=== PATIENT | male | born 1965 | race Caucasian/White ===

== ENCOUNTER 2017-05-20 17:18 | Observation (INO) ==
[2017-05-20] MEDS ORDERED: MetroNIDAZOLE 500 MG/100 ML 500 MG/100 ML BAG IVPB ONE (17:40)
--- NOTE | 2017-05-20 17:45 | Emergency Department Note ---
Disposition Clinical Impression: Diverticulitis Disposition: Admitted As Inpatient Condition: Fair Time of Disposition: 20:14 General Adult HPI - General Chief complaint: ED Abdominal Pain Stated complaint: abd pain Time Seen by Provider: 05/20/17 17:26 Source: patient Limitations: no limitations Nursing Notes Reviewed: Yes Vital Signs Reviewed: Yes - History of Present Illness Pain Scale: 4 - Related Data Home Medications Medication Instructions Recorded Confirmed Ciprofloxacin HCl [Cipro] 500 mg PO BID 05/20/17 05/20/17 Losartan Potassium [Cozaar] 50 mg PO DAILY 05/20/17 05/20/17 Metoclopramide [Reglan] 10 mg PO TID 05/20/17 05/20/17 Metoprolol Tartrate [Metoprolol 50 mg PO BID 05/20/17 05/20/17 Tartrate] Testosterone Cypionate [Testone 200 mg IM QMONTH 05/20/17 05/20/17 Cik] metroNIDAZOLE [Flagyl] 500 mg PO BID 05/20/17 05/20/17 traZODone [TraZODone] 50 mg PO HS 05/20/17 05/20/17 Allergies Allergy/AdvReac Type Severity Reaction Status Date / Time lisinopril AdvReac Cough Verified 05/20/17 17:49 Past Medical History - Past Medical History Medical history: Reports: GERD, hypertension Psychiatric history: Reports: no psych history - Social History Smoking Status: Never smoker Smokeless Tobacco Status: No Alcohol use: Reports: occasionally Drug use: Reports: none Physical Exam - General Limitations: no limitations General appearance: alert Course Vital Signs Temperature 97.9 F 05/20/17 17:20 Pulse Rate 74 05/20/17 17:20 Respiratory Rate 20 05/20/17 17:20 Blood Pressure 155/90 05/20/17 17:20 O2 Sat by Pulse Oximetry 95 05/20/17 17:20 Temperature 97.9 F 05/20/17 17:20 Pulse Rate 71 05/20/17 18:56 Respiratory Rate 15 05/20/17 18:56 Blood Pressure 142/88 05/20/17 18:56 O2 Sat by Pulse Oximetry 95 05/20/17 18:56 Oxygen Delivery Oxygen Delivery Room Air Medical Decision Making - Lab Data Result diagrams: 05/20/17 19:06 05/20/17 17:47 Lab Results 05/20/17 05/20/17 Range/Units 17:47 19:06 WBC 8.5 (4.3-11.1) K/mcL RBC 5.07 (4.19-5.50) M/mcL Hgb 15.4 (12.9-16.9) g/dL Hct 45.8 (37.5-50.1) % MCV 90.3 (83.0-100.0) fL MCH 30.4 (28.0-33.3) pg MCHC 33.6 (31.6-35.5) g/dL RDW 14.1 (11.5-14.5) % Plt Count 298 (140-400) K/mcL MPV 9.1 L (9.4-12.4) fL Sodium 135 L (136-145) mEq/L Potassium 3.7 (3.5-5.1) mEq/L Chloride 102 (98-107) mEq/L Carbon Dioxide 25 (23-29) mEq/L BUN 14 (6-20) mg/dL Creatinine 1.12 (0.70-1.30) mg/dL Est GFR ( Amer) > 60 (> 60) Est GFR (Non-Af Amer) > 60 (> 60) BUN/Creatinine Ratio 13 (6-26) Glucose 115 H (70-105) mg/dL Calculated Osmolality 281 (280-300) Calcium 9.1 (8.6-10.3) mg/dL
--- NOTE | 2017-05-20 17:45 | Emergency Department Note ---
Disposition Clinical Impression: Diverticulitis Disposition: Admitted As Inpatient Condition: Fair Time of Disposition: 20:00 General Adult HPI - General Chief complaint: ED Abdominal Pain Stated complaint: abd pain Time Seen by Provider: 05/20/17 17:26 Source: patient Mode of arrival: ambulatory Limitations: no limitations Nursing Notes Reviewed: Yes Vital Signs Reviewed: Yes - History of Present Illness HPI Narrative: Patient is a 51-year-old male with a past medical history of diverticulitis and bowel obstruction presenting to the ED per request of his family care physician for diverticulitis. The patient states that over the past 5 days he has been having left lower quadrant pain described as a sharp stabbing pain that is intermittent associated with nonbloody diarrhea. He states that he was seen by his primary care physician 3 days ago and started on ciprofloxacin and Flagyl by mouth he states that his symptoms have not been improving since then. The patient had labs and a CT scan done today at [facility] and due to the CT findings the family physician requested that the patient come to the hospital to be admitted to our services for IV antibiotics. Pain Scale: 4 - Related Data Home Medications Medication Instructions Recorded Confirmed Ciprofloxacin HCl [Cipro] 500 mg PO BID 05/20/17 05/20/17 Losartan Potassium [Cozaar] 50 mg PO DAILY 05/20/17 05/20/17 Metoclopramide [Reglan] 10 mg PO TID 05/20/17 05/20/17 Metoprolol Tartrate [Metoprolol 50 mg PO BID 05/20/17 05/20/17 Tartrate] Testosterone Cypionate [Testone 200 mg IM QMONTH 05/20/17 05/20/17 Cik] metroNIDAZOLE [Flagyl] 500 mg PO BID 05/20/17 05/20/17 traZODone [TraZODone] 50 mg PO HS 05/20/17 05/20/17 Allergies Allergy/AdvReac Type Severity Reaction Status Date / Time lisinopril AdvReac Cough Verified 05/20/17 17:49 All systems ED: reviewed and negative except as stated. Review of Systems: As Per HPI Constitutional: Denies: fever, chills Cardiovascular: Denies: chest pain, palpitations, dyspnea on exertion Respiratory: Denies: cough, dyspnea Gastrointestinal: Reports: abdominal pain, diarrhea. Denies: nausea, vomiting, hematemesis, melena, hematochezia Musculoskeletal: Denies: back pain, neck pain Past Medical History - Past Medical History Attestation: Yes The following information was validated with the patient. Medical history: Reports: GERD, hypertension Psychiatric history: Reports: no psych history - Social History Smoking Status: Never smoker Smokeless Tobacco Status: No Alcohol use: Reports: occasionally Drug use: Reports: none Physical Exam CONSTITUTIONAL: Alert and oriented X3, well-nourished, well appearing, in no apparent distress HEAD: Normocephalic; atraumatic. EYES: PERRL, no scleral icterus. NOSE: The nose is normal in appearance without rhinorrhea RESP: Normal chest excursion with respiration; breath sounds clear and equal bilaterally; no wheezes, rhonchi, or rales CARD: Regular rhythm, without murmurs, rub or gallop ABD: Non-distended; moderate tenderness in the LLQ. No rebound or rigidity. Voluntary guarding. SKIN: Normal for age and race; warm and dry; no apparent lesions NEURO: GCS of 15. A of 4. No focal neurological deficit. - General Limitations: no limitations General appearance: alert Course Course Narrative: Patient had a CT of the abdomen and pelvis done outpatient which did show diverticulitis of the left lower quadrant with no abscess or obstruction present. Basic labs were ordered which were unremarkable. The patient was given a dose of IV antibiotics and admitted to the hospitalist for further management. Vital Signs Temperature 97.9 F 05/20/17 17:20 Pulse Rate 74 05/20/17 17:20 Respiratory Rate 20 05/20/17 17:20 Blood Pressure 155/90 05/20/17 17:20 O2 Sat by Pulse Oximetry 95 05/20/17 17:20 Temperature 97.9 F 05/20/17 17:20 Pulse Rate 71 05/20/17 18:56 Respiratory Rate 15 05/20/17 18:56 Blood Pressure 142/88 05/20/17 18:56 O2 Sat by Pulse Oximetry 95 05/20/17 18:56 Oxygen Delivery Oxygen Delivery Room Air Medical Decision Making - Medical Records Medical records reviewed: Yes I reviewed the patient's medical records. - Lab Data Lab results reviewed: Yes I reviewed the patient's lab results. Result diagrams: 05/20/17 19:06 05/20/17 17:47 Lab Results 05/20/17 05/20/17 Range/Units 17:47 19:06 WBC 8.5 (4.3-11.1) K/mcL RBC 5.07 (4.19-5.50) M/mcL Hgb 15.4 (12.9-16.9) g/dL Hct 45.8 (37.5-50.1) % MCV 90.3 (83.0-100.0) fL MCH 30.4 (28.0-33.3) pg MCHC 33.6 (31.6-35.5) g/dL RDW 14.1 (11.5-14.5) % Plt Count 298 (140-400) K/mcL MPV 9.1 L (9.4-12.4) fL Sodium 135 L (136-145) mEq/L Potassium 3.7 (3.5-5.1) mEq/L Chloride 102 (98-107) mEq/L Carbon Dioxide 25 (23-29) mEq/L BUN 14 (6-20) mg/dL Creatinine 1.12 (0.70-1.30) mg/dL Est GFR ( Amer) > 60 (> 60) Est GFR (Non-Af Amer) > 60 (> 60) BUN/Creatinine Ratio 13 (6-26) Glucose 115 H (70-105) mg/dL Calculated Osmolality 281 (280-300) Calcium 9.1 (8.6-10.3) mg/dL
[2017-05-20 18:36] LABS: BUN/Creatinine Ratio 13 (6-26); Blood Urea Nitrogen 14 mg/dL (6-20); Calcium 9.1 mg/dL (8.6-10.3); Carbon Dioxide 25 mEq/L (23-29); Chloride 102 mEq/L (98-107); Glucose 115 mg/dL (70-105); Osmolality,Calculated 281 (280-300); Potassium 3.7 mEq/L (3.5-5.1); Sodium 135 mEq/L (136-145); eGFR For African Americans > 60 (> 60); eGFR For Non-African Americans > 60 (> 60)
[2017-05-20 19:11] LABS: Hematocrit 45.8 % (37.5-50.1); Hemoglobin 15.4 g/dL (12.9-16.9); Mean Corpuscular HGB Conc 33.6 g/dL (31.6-35.5); Mean Corpuscular Hemoglobin 30.4 pg (28.0-33.3); Mean Corpuscular Volume 90.3 fL (83.0-100.0); Mean Platelet Volume 9.1 fL (9.4-12.4); Platelet Count 298 K/mcL (140-400); Red Blood Count 5.07 M/mcL (4.19-5.50); Red Cell Distribution Width 14.1 % (11.5-14.5)
[2017-05-20] MEDS ORDERED: *HR* Promethazine 25 MG/ML VIAL IVP PRN (20:43)
[2017-05-20] MEDS ORDERED: Ondansetron 4 MG/2 ML VIAL IVP PRN (20:43)
[2017-05-20] MEDS ORDERED: Naloxone 0.4 MG/ML INJ IVP PRN (20:43)
[2017-05-20] MEDS ORDERED: Acetaminophen 325 MG TABLET PO PRN (20:43)
[2017-05-20] MEDS ORDERED: *HR* FentaNYL (PF) 100 MCG/2 ML VIAL IVP PRN (20:45)
--- NOTE | 2017-05-20 21:14 | Internal Med History&Physical ---
Date of Encounter: 05/20/17 Time of Encounter: 19:45 Assessment and Plan (1) Diverticulitis Current visit: Yes Status: Acute Place the pt into Med Surg for observation Reviewed CT of abd showed Left sigmoid diverticulitis, no abscess noticed NPO for now Switch to IV Abx Cipro and Flagyl Normal WBC, pt does not look toxic Since he does have recurrent episode and never followed with surgeon before, so consulted Dr. Blue for further care IV hydration IV analgesics on PPI (2) HTN (hypertension) Current visit: Yes Status: Acute resumed home PO meds Qualifiers: Qualified Code(s): I10 - Essential (primary) hypertension Internal Medicine - H&P: HPI Chief complaint: Abdominal pain Admitted From: Emergency Dept Plans for Post Hospital Care: Home History of present illness: Mr. Barros is a 51 year old male with a known past medical history of hypertension, GERD, diverticulitis with a small bowel obstruction 2 years ago who never had a colonoscopy has been having left lower quadrant abdominal pain from last 5 days. He went to PCP on Saturday who started him on PO Flagyl and Cipro suspecting as diverticulitis. However his abdominal pain have not improved and also started having diarrhea with no blood since Saturday. He went back to PCP today who did CT of abd which confirmed Acute complicated diverticulitis disytall left and sigmoid colon with no abscess. Pt denied any N / V. Past Med Surg Social Fam HX - Past Medical History Medical history: GERD, hypertension Psychiatric history: no psych history - Past Surgical History Surgical History: no surgical history - Social History Smoking Status: Never smoker Smokeless Tobacco Status: No Alcohol use: occasionally Drug use: none - Additional Family History Additional family history: Family hsitory reviewed and non contribuitory to current problem. Denied any inflammatory bowel disease in the family Internal Medicine - H&P: Meds Ciprofloxacin HCl [Cipro] 500 mg PO BID 05/20/17 [History] Losartan Potassium [Cozaar] 50 mg PO DAILY 05/20/17 [History] Metoclopramide [Reglan] 10 mg PO TID 05/20/17 [History] Metoprolol Tartrate [Metoprolol Tartrate] 50 mg PO BID 05/20/17 [History] Testosterone Cypionate [Testone Cik] 200 mg IM QMONTH 05/20/17 [History] metroNIDAZOLE [Flagyl] 500 mg PO BID 05/20/17 [History] traZODone [TraZODone] 50 mg PO HS 05/20/17 [History] 3 Allergy/AdvReac Type Severity Reaction Status Date / Time lisinopril AdvReac Cough Verified 05/20/17 17:49 All Systems PM: A 10-system review of systems was performed and is negative for pertinent findings except as documented above in the HPI. Review of systems: All the systems are reviewed everything is benign except the systems and symptoms I mentioned in the history of present illness - Constitutional Vitals: Temp Pulse Resp BP Pulse Ox 98.5 F 78 16 154/77 95 05/20/17 20:34 05/20/17 20:34 05/20/17 20:34 05/20/17 20:34 05/20/17 20:34 General appearance: Present: A&O X 3, no acute distress, answers questions appropriately - Head Head exam: Present: atraumatic, normal inspection - Neck Neck exam general surgery: Present: supple - Respiratory Respiratory exam: Present: decreased breath sounds. Absent: rales, respiratory distress, rhonchi, wheezes - Cardiovascular Cardiovascular exam: Present: RRR, +S1, +S2. Absent: tachycardia - GI/Abdominal GI/Abdominal exam: Present: normal bowel sounds, soft, tenderness (mild to moderate tenderness in LLQ). Absent: rebound, rigid - Extremities Exam Extremities exam: Absent: calf tenderness, pedal edema, tenderness - Back Exam Back exam: Absent: CVA tenderness (L), CVA tenderness (R) - Neurological Exam Neurological exam: Present: alert, oriented X3 - Psychiatric Psychiatric exam: Present: normal affect, normal mood - Skin Skin exam: Absent: rash Internal Med - H&P Results - Labs CBC & Chem 7: 05/20/17 19:06 05/20/17 17:47
[2017-05-20] MEDS: 0.9 % Sodium Chloride 1,000 ML IVC SCH (21:57)
[2017-05-20] MEDS: *HR* HYDROcodone/Acet 5/325 mg TABLET PO PRN (21:57)
[2017-05-20] MEDS: traZODone 50 MG TABLET PO SCH (21:57)
[2017-05-20] MEDS: Pantoprazole 40 MG VIAL IVP SCH (22:00)
[2017-05-21] MEDS: MetroNIDAZOLE 500 MG/100 ML 500 MG/100 ML BAG IVPB SCH ×4 (00:18→23:26)
[2017-05-21] MEDS: *HR* HYDROcodone/Acet 5/325 mg TABLET PO PRN (04:32)
--- NOTE | 2017-05-21 09:17 | Internal Med Progress Note ---
Date of Encounter: 05/21/17 Time of Encounter: 09:00 - Assessment and plan (1) Diverticulitis Current Visit: Yes Status: Acute Assessment and plan: With possible microperforation. Symptoms improving. COntinue current management. Follow surgery recommendations. Continue antibiotics. (2) HTN (hypertension) Current Visit: Yes Status: Chronic Assessment and plan: Well-controlled. Continue metoprolol and losartan Qualifiers: Hypertension type: essential hypertension Qualified Code(s): I10 - Essential (primary) hypertension - Time Spent With Patient Total time spent is greater than 50% in coordination of care (as documented) at patient's floor/unit and/or counseling patient: - Subjective Interval history: Pain resolved. No fever or chills. No nausea/ vomiting. Feeling better overall. - Constitutional Vitals: Temp Pulse Resp BP Pulse Ox 98.1 F 76 16 118/68 95 05/21/17 07:04 05/21/17 07:04 05/21/17 07:04 05/21/17 07:04 05/21/17 07:04 General appearance: Present: A&O X 3, no acute distress, answers questions appropriately Internal Medicine: Result - Labs CBC & Chem 7: 05/20/17 19:06 05/20/17 17:47 Consult Discharge Plan - Plan Referrals: Sami Mar DO [Primary Care Provider] -
[2017-05-21] MEDS: Pantoprazole 40 MG VIAL IVP SCH (09:28)
[2017-05-21] MEDS: 0.9 % Sodium Chloride 1,000 ML IVC SCH (09:29)
--- NOTE | 2017-05-21 15:13 | General Surgery Consult Note ---
Date of Encounter: 05/21/17 Time of Encounter: 14:20 History of Present Illness Reason for consult: abdominal pain (acute diverticulitis with perforation) Requesting physician: Dev Ko History of present illness: 51-year-old, patient of Sami Mar CNP, admitted to [facility] after presenting to the ED with progressive left lower quadrant abdominal pain, nausea and vomiting. CT of abdomen/pelvis obtained at [facility], 05/20/17 , showed diverticular disease involving the colon. Mesenteric stranding is seen at the junction of the distal left colon and sigmoid colon. There is accompanying bowel wall thickening as well as extraluminal gas in the left lower quadrant extending into the left inguinal canal. The patient indicated abdominal pain started 05/17/17, for which ciprofloxacin and metronidazole were promptly initiated. The patient describes feelng no better, 05/20/2017, and was referred to the ED for further evaluation and treatment. The patient describes a similar episode approx 2 years with an accompanying bowel obstruction that ultimately resolved with medical management. Past medical history: Hypertension; GERD Surgical History: ORIF left ankle Allergies: Lisinopril with exposure causing cough Medications: Ciprofloxacin 500 mg by mouth twice a day Metronidazole 500 mg by mouth twice a day Losartan 50 mg by mouth daily Metoclopramide 10 mg by mouth 3 times a day Metoprolol 50 mg by mouth twice a day Testosterone cypionate 200 mg IM monthly Trazodone 50 mg by mouth daily at bedtime Social history: Patient does not smoke; admits to alcoholic intake approximately 2 times monthly; he denies any illicit drug use Physical examination: Age-appropriate male resting comfortably in his hospital bed. He indicates that he is feeling better than on presentation. The patient is 1.7 cm tall, 98.07 kg; BMI 33.9. The patient has been afebrile, currently 98.0; pulse 60, respirations 16, blood pressure 126/76. Skin: Warm, no obvious jaundice Lungs: Clear, no obvious abdominal pain with deep inspiration Cardiac: Regular rate, no appreciable murmurs Abdomen: Soft slightly obese; tender in the left lower quadrant without discernible intra-abdominal masses. Minimal pain referred from the right lower quadrant to the left lower quadrant when the abdominal wall is compressed and then released. Bowel sounds were active. The patient is passing flatus and diarrhea Extremities: No obvious clubbing, cyanosis, edema. CT abdomen/pelvis- reviewed with [facility]: White count 8.5, hemoglobin 15.4, hematocrit 45.8. Sodium 135, potassium 3.7, BUN 14, creatinine 1.12 Impression: Recurrent acute diverticulitis with ideologic evidence of extraluminal gas in the left lower quadrant consistent with acute perforation. The area was quite small-appearing in volume; consistent with a "microperforation". There are no accompanying peritoneal signs, with clinical Improvement described by the patient. Recommendations: Continue IV Cipro and metronidazole as prescribed on admission Maintain nothing by mouth except medications with sips of water until abd pain resolved If symptoms worsen or patient fails to respond to medical management, surgical intervention will be recommended Consider interval sigmoid colectomy once acute inflammatory changes have responded to medical management. This has been discussed with the patient in detail. Imminent surgical intervention not indicated at this time. I will follow along with you and make further recommendations based on the patient's response to intervention Past Med Surg Social Fam HX - Past Medical History Medical history: GERD, hypertension Psychiatric history: no psych history - Past Surgical History Surgical History: no surgical history - Social History Smoking Status: Never smoker Smokeless Tobacco Status: No Alcohol use: occasionally Drug use: none Medications and Allergies Ciprofloxacin HCl [Cipro] 500 mg PO BID 05/20/17 [History] Losartan Potassium [Cozaar] 50 mg PO DAILY 05/20/17 [History] Metoclopramide [Reglan] 10 mg PO TID 05/20/17 [History] Metoprolol Tartrate [Metoprolol Tartrate] 50 mg PO BID 05/20/17 [History] Testosterone Cypionate [Testone Cik] 200 mg IM QMONTH 05/20/17 [History] metroNIDAZOLE [Flagyl] 500 mg PO BID 05/20/17 [History] traZODone [TraZODone] 50 mg PO HS 05/20/17 [History] 3 Allergy/AdvReac Type Severity Reaction Status Date / Time lisinopril AdvReac Cough Verified 05/20/17 17:49 Review of Systems All systems PM: The remainder of the systems were reviewed and are negative General Surgery Exam Initial Vital Signs Temp Pulse Resp BP Pulse Ox 97.9 F 74 20 155/90 95 05/20/17 17:20 05/20/17 17:20 05/20/17 17:20 05/20/17 17:20 05/20/17 17:20 Exam Initial Vital Signs Temp Pulse Resp BP Pulse Ox 97.9 F 74 20 155/90 95 05/20/17 17:20 05/20/17 17:20 05/20/17 17:20 05/20/17 17:20 05/20/17 17:20 Results - Labs 05/20/17 19:06 05/20/17 17:47 Abnormal lab results MPV 9.1 fL (9.4-12.4) L 05/20/17 19:06 Sodium 135 mEq/L (136-145) L 05/20/17 17:47 Glucose 115 mg/dL (70-105) H 05/20/17 17:47 POC Glucose 99 mg/dL (68-89) H 05/21/17 05:31 All other labs normal. Consult Discharge Plan - Plan Referrals: Sami Mar DO [Primary Care Provider] -
[2017-05-21] MEDS: Ringers Solution, Lactated 1,000 ML IVC SCH (18:26)
[2017-05-21] MEDS: traZODone 50 MG TABLET PO SCH (21:41)
[2017-05-22] MEDS ORDERED: Famotidine 20 MG/2 ML VIAL IVP ONE (02:04)
[2017-05-22] MEDS ORDERED: *HR* Dextrose 50 % in Water (Syg) 50 ML SYRINGE IVP PRN (08:24)
[2017-05-22] MEDS ORDERED: Dextrose Gel 15 GM/37.5 ML TUBE PO PRN ×2 (08:24)
[2017-05-22] MEDS ORDERED: D5% in Water 1,000 ML IVC PRN (08:24)
[2017-05-22] MEDS: Pantoprazole 40 MG VIAL IVP SCH (09:44)
[2017-05-22] MEDS: MetroNIDAZOLE 500 MG/100 ML 500 MG/100 ML BAG IVPB SCH ×3 (09:44→23:56)
[2017-05-22] MEDS: Ringers Solution, Lactated 1,000 ML IVC SCH (09:45)
--- NOTE | 2017-05-22 14:14 | General Surgery Progress Note ---
Date of Encounter: 05/22/17 Time of Encounter: 13:50 Subjective Patient reports: no new complaints, feels better Narrative: General Surgery - patient feeling better; pain has almost completely resolved. Afebrile, most recently 98.0; pulse 61, respirations 15, blood pressure 127/ 78. Lungs: Clear; no abdominal pain with deep inspiration or cough Abdomen: Soft, left lower quadrant tenderness elicited to deep palpation. No rebound. Active bowel sounds. Patient complaining of diarrhea but I explained to him that this is due to the acute inflammation of the sigmoid colon. Impression: Acute sigmoid diverticulitis with evidence of perforation - "a microperforation" Patient feeling much improved with abdominal pain resolving nicely. Plan: Allow clear liquids; if no increase in abdominal pain, full liquids in a.m. Recommendations: If tolerating diet with no increase in abdominal pain, it would be reasonable to convert to oral medications including antibiotics Objective Vital Signs - Last 8 Hours Temp Pulse Resp BP Pulse Ox 05/22/17 10:25 98.0 F 61 15 127/78 95 05/22/17 07:18 98.2 F 69 15 107/68 97 Intake and Output 05/21/17 05/22/17 05/22/17 23:59 07:59 15:59 Intake Total 300 / 300 1300 / 1300 120 / 120 Output Total 275 / 275 300 / 300 350 / 350 Balance 25 / 25 1000 / 1000 -230 / -230 Intake: IV Fluids 300 / 300 1300 / 1300 100 / 100 Lactated Ringers 1,000 ML @ 75 1000 / 1000 mls/hr IVC .[id number] [facility] Rx#: [id number] Cipro Premix 400 MG/200 ML 400 200 / 200 200 / 200 mg In 200 ml @ 200 mls/hr IVPB Q12HR [facility] Rx#:[id number] Flagyl Premix 500 MG/100 ML 500 100 / 100 100 / 100 100 / 100 mg In 100 ml @ 100 mls/hr IVPB Q8HR [facility] Rx#:[id number] Oral 0 / 0 0 / 0 20 / 20 Output: Urine 275 / 275 300 / 300 350 / 350 Other: Meal npo NPO Weight 98.8 kg Blood Glucose* 73 92 98 Patient Weight 05/22/17 23:59 Weight 98.8 kg - Labs 05/20/17 19:06 05/20/17 17:47 Consult Discharge Plan - Plan Referrals: Sami Mar, [Primary Care Provider] -
--- NOTE | 2017-05-22 15:05 | Internal Med Progress Note ---
Date of Encounter: 05/22/17 Time of Encounter: 10:50 - Assessment and plan (1) Diverticulitis Current Visit: Yes Status: Acute Assessment and plan: With microperforation. Resolving. Started on clear liquid diet by surgery. Will assess response. Continue IV antibiotics and fluids. Monitor vital signs closely. (2) HTN (hypertension) Current Visit: Yes Status: Chronic Assessment and plan: Controlled. Continue metoprolol and losartan Qualifiers: Hypertension type: essential hypertension Qualified Code(s): I10 - Essential (primary) hypertension - Time Spent With Patient Total time spent is greater than 50% in coordination of care (as documented) at patient's floor/unit and/or counseling patient: - Subjective Interval history: Patient continues to do well. Denies any abdominal pain at this time. Has not yet attempted liquid diet and awaiting clearance from surgery. Denies any nausea or vomiting at this time. - Constitutional Vitals: Temp Pulse Resp BP Pulse Ox 98.7 F 51 15 151/81 96 05/22/17 14:17 05/22/17 14:17 05/22/17 14:17 05/22/17 14:17 05/22/17 14:17 General appearance: Present: A&O X 3, no acute distress, answers questions appropriately - Respiratory Respiratory exam: Present: CTAB. Absent: accessory muscle use, rales, rhonchi, wheezes - Cardiovascular Cardiovascular exam: Present: RRR, +S1, +S2. Absent: diastolic murmur, gallop, rubs, systolic murmur - GI/Abdominal GI/Abdominal exam: Present: normal bowel sounds, soft, no peritoneal signs. Absent: distended, tenderness - Extremities Exam Extremities exam: Present: warm, radial pulses palpable and symmetrical. Absent : calf tenderness, cyanotic, pedal edema - Neurological Exam Neurological exam: Present: CN II-XII intact, oriented X3, no focal deficits. Absent: facial droop, speech deficit - Skin Skin exam: Present: dry, intact Internal Medicine: Result - Labs CBC & Chem 7: 05/20/17 19:06 05/20/17 17:47 Consult Discharge Plan - Plan Referrals: Sami Mar DO [Primary Care Provider] -
[2017-05-22] MEDS: traZODone 50 MG TABLET PO SCH (21:01)
[2017-05-23] MEDS: Ringers Solution, Lactated 1,000 ML IVC SCH (01:32)
[2017-05-23] MEDS: Pantoprazole 40 MG VIAL IVP SCH (08:23)
[2017-05-23] MEDS: MetroNIDAZOLE 500 MG/100 ML 500 MG/100 ML BAG IVPB SCH (08:24)
[2017-05-23 11:53] VITALS: BP 147/83
--- NOTE | 2017-05-23 12:18 | General Surgery Progress Note ---
Date of Encounter: 05/23/17 Time of Encounter: 12:00 Subjective Patient reports: feels better, tolerating liquids well Narrative: General Surgery - patient feeling well. Denies abdominal pain, tolerating full liquid diet without abdominal pain, nausea or vomiting. Patient continues to be afebrile, 98.5; pulse 58, respirations 16. Blood pressure 147/83. Abdomen: Soft, nontender with active bowel sounds. Impression: Acute sigmoid diverticulitis with perforation evident on the CT abdomen/pelvis obtained on the day of his presentation Patient has responded to IV antibiotics with resolution of abdominal pain. The patient is currently tolerating full liquids. Recommendations: Patient may be discharged home on oral medications. Regular diet. No dietary restrictions necessary except those foods that cause constipation. Ciprofloxacin 500 mg by mouth twice a day and metronidazole 500 mg by mouth 3 times a day is recommended Patient to follow-up with me 05/27/17, please call office to make this appointment Repeat CT abdomen/pelvis with oral and IV contrast Saturday a.m. - prior to the appointment at my office. Objective Vital Signs - Last 8 Hours Temp Pulse Resp BP Pulse Ox 05/23/17 11:44 98.5 F 58 16 147/83 95 05/23/17 08:31 56 05/23/17 08:05 98.6 F 53 15 126/74 96 Intake and Output 05/22/17 05/23/17 05/23/17 23:59 07:59 15:59 Intake Total 1340 / 1340 300 / 300 600 / 600 Output Total 400 / 400 200 / 200 750 / 750 Balance 940 / 940 100 / 100 -150 / -150 Intake: IV Fluids 1100 / 1100 300 / 300 Lactated Ringers 1,000 ML @ 75 1000 / 1000 mls/hr IVC .[id number] [facility] Rx#: [id number] Cipro Premix 400 MG/200 ML 400 200 / 200 mg In 200 ml @ 200 mls/hr IVPB Q12HR [facility] Rx#:[id number] Flagyl Premix 500 MG/100 ML 500 100 / 100 100 / 100 mg In 100 ml @ 100 mls/hr IVPB Q8HR [facility] Rx#:[id number] Oral 240 / 240 0 / 0 600 / 600 Output: Urine 400 / 400 200 / 200 750 / 750 Other: Meal Clears Clears Percent of Meal Consumed 0% Weight 98.8 kg Blood Glucose* 106 Patient Weight 05/23/17 23:59 Weight 98.8 kg - Labs 05/20/17 19:06 05/20/17 17:47 Consult Discharge Plan - Plan Referrals: Sami Mar, [Primary Care Provider] -
--- NOTE | 2017-05-23 13:29 | Discharge Summary ---
- NOTES TO OUTPATIENT PROVIDER Notes to Outpatient Provider: Patient admitted with acute diverticulitis with microperforation. Treated with antibiotics and bowel rest. He will follow-up with surgery for further management Date of Encounter: 05/23/17 Time of Encounter: 13:22 - Discharge Diagnosis (1) Diverticulitis Priority: Primary Status: Acute (2) HTN (hypertension) Priority: Secondary Status: Chronic Qualifiers: Hypertension type: essential hypertension Qualified Code(s): I10 - Essential (primary) hypertension Hospital course: Mr. Barros is a 51 year old male patient with a history of diverticulosis with an episode of prior diverticulitis, essential hypertension was hospitalized here with acute diverticulitis with microperforation. He was kept nothing by mouth. Surgery was consulted. He was treated with IV antibiotics and antiemetics along with IV fluids. His symptoms have since improved. He is pain -free now and is tolerating oral diet. His been cleared for discharge by surgery. He will follow-up with surgery after discharge for further management which may include interval sigmoid colectomy. He is advised to return to the ER if he develops worsening pain fever or chills or night sweats. Discharge discussed with: patient - Time Spent with Patient Total time spent providing and/or coordinating discharge services: Greater than 30 minutes (32 min) - Discharge Medications Prescriptions: metroNIDAZOLE [Flagyl] 500 mg PO TID #15 tablet Home Medications: Ciprofloxacin HCl [Cipro] 500 mg PO BID 05/20/17 [History] Losartan Potassium [Cozaar] 50 mg PO DAILY 05/20/17 [History] Metoclopramide [Reglan] 10 mg PO TID 05/20/17 [History] Metoprolol Tartrate 50 mg PO BID 05/20/17 [History] Testosterone Cypionate [Testone Cik] 200 mg IM QMONTH 05/20/17 [History] traZODone [TraZODone] 50 mg PO HS 05/20/17 [History] Acetaminophen [Tylenol] 650 mg PO Q6HR PRN tablet 05/23/17 [Rx] metroNIDAZOLE [Flagyl] 500 mg PO TID #15 tablet 05/23/17 [Rx] Allergies/Adverse Reactions: 3 Allergy/AdvReac Type Severity Reaction Status Date / Time lisinopril AdvReac Cough Verified 05/20/17 17:49 Date of admission: 05/20/17 19:44 Primary care physician: Sami Mar DO Consults: 05/20/17 21:18 Consult to Surgery [CONS] Routine Consulting Provider: Surgery [facility] Surg - Su Reason for Consult: Acute diverticulitis Time Notified: 21:21 Call Completed: Yes Discharging clinician: Wai Sue Anticipated date of discharge: 05/23/17 - Constitutional Vitals: Temp Pulse Resp BP Pulse Ox 98.5 F 58 16 147/83 95 05/23/17 11:44 05/23/17 11:44 05/23/17 11:44 05/23/17 11:44 05/23/17 11:44 General appearance: Present: A&O X 3, no acute distress, answers questions appropriately - Neck Neck exam general surgery: Present: supple, trachea midline. Absent: lymphadenopathy - Respiratory Respiratory exam: Present: CTAB. Absent: accessory muscle use, rales, rhonchi, wheezes - Cardiovascular Cardiovascular exam: Present: RRR, +S1, +S2. Absent: diastolic murmur, gallop, rubs, systolic murmur - GI/Abdominal GI/Abdominal exam: Present: normal bowel sounds, soft, no peritoneal signs. Absent: distended, tenderness - Extremities Exam Extremities exam: Present: warm, radial pulses palpable and symmetrical. Absent : calf tenderness, cyanotic, pedal edema - Neurological Exam Neurological exam: Present: alert, CN II-XII intact, oriented X3, no focal deficits. Absent: facial droop, speech deficit - Patient Status Disposition: Home, Self-Care Condition: Good Functional capacity at discharge: independent ambulation Overall status at discharge: patient is progressing back to baseline - Discharge Instructions Instructions: Chronic Hypertension (DC), Diverticulitis (DC) Follow Up With: Sami Mar DO [Primary Care Provider] - (in 1-2 weeks) Yemi Blue MD [Non-Partnered Physician] - (on 05/27/17 afternoon. Call office.) - Diet and Activity Activity: increase activity as tolerated Diet: low fat, low cholesterol, low salt diet
== END 2017-05-23 14:59 | disposition home or self-care (01) ==
LOC: 3ANU 17:18 → EMEROO 17:18 → SUATTDRO 19:44 → 3ANU 20:26
PROVIDERS: ADMIT Family Medicine; ATTEND Internal Medicine

== ENCOUNTER 2021-07-27 08:26 | Observation (INO) ==
[2021-07-27] MEDS ORDERED: Naloxone 0.4 MG/ML INJ IVP PRN (10:22)
[2021-07-27] MEDS ORDERED: Ondansetron 4 MG/2 ML VIAL IVP PRN (10:24)
[2021-07-27] MEDS ORDERED: Chloraseptic Spray 177 ML BOTTLE MM PRN (11:45)
[2021-07-27] MEDS ORDERED: *HR* LORazepam 2 MG/ML VIAL IVP ONE ×2 (12:20→21:06)
[2021-07-27] MEDS: 0.9 % Sodium Chloride 1,000 ML IVC SCH ×2 (12:20→21:42)
[2021-07-27] MEDS ORDERED: clonazePAM 0.5 MG TABLET PO PRN (12:32)
[2021-07-27] MEDS: amLODIPine 5 MG TABLET PO SCH (21:01)
[2021-07-27] MEDS: Metoprolol XL (24 HR) Succ 50 MG TAB.ER.24H PO SCH (21:01)
[2021-07-28 01:55] LABS: Basophils % 0.5 %; Eosinophils # 0.2 K/mcL (0.0-0.6); Eosinophils % 2.8 %; Hematocrit 45.3 % (37.5-50.1); Hemoglobin 15.2 g/dL (12.9-16.9); Immature Granulocytes % 0.2 % (0-4); Mean Corpuscular HGB Conc 33.6 g/dL (31.6-35.5); Mean Corpuscular Volume 92.4 fL (83.0-100.0); Mean Platelet Volume 9.1 fL (9.4-12.4); Monocytes # 0.7 K/mcL (0.0-1.3); Monocytes % 10.8 %; Neutrophils # 3.6 K/mcL (1.6-8.9); Platelet Count 225 K/mcL (140-400); Red Cell Distribution Width 13.5 % (11.5-14.5); Segmented Neutrophils % 54.7 %; White Blood Count 6.5 K/mcL (4.3-11.1)
[2021-07-28 02:13] LABS: BUN/Creatinine Ratio 16 (6-26); Blood Urea Nitrogen 12 mg/dL (6-20); Calcium 8.4 mg/dL (8.6-10.3); Carbon Dioxide 24 mEq/L (23-29); Chloride 108 mEq/L (98-107); Glucose 77 mg/dL (70-105); Magnesium 2.1 mg/dL (1.6-2.6); Osmolality,Calculated 287 (280-300); Phosphorous 3.4 mg/dL (2.7-4.5); Potassium 3.9 mEq/L (3.5-5.1); Sodium 139 mEq/L (136-145); eGFR For African Americans > 60 (> 60); eGFR For Non-African Americans > 60 (> 60)
[2021-07-28] MEDS: Metoprolol XL (24 HR) Succ 50 MG TAB.ER.24H PO SCH ×2 (08:37→21:18)
[2021-07-28] MEDS: Aspirin Enteric Coated 81 MG Tablet PO SCH (08:37)
[2021-07-28] MEDS: 0.9 % Sodium Chloride 1,000 ML IVC SCH ×2 (08:43→21:18)
[2021-07-28] MEDS ORDERED: Acetaminophen 325 MG TABLET PO PRN (18:02)
[2021-07-28] MEDS: amLODIPine 5 MG TABLET PO SCH (21:18)
[2021-07-29 05:03] LABS: Basophils % 0.5 %; Eosinophils # 0.2 K/mcL (0.0-0.6); Eosinophils % 3.2 %; Hematocrit 45.3 % (37.5-50.1); Immature Granulocytes % 0.2 % (0-4); Lymphocytes # 2.1 K/mcL (0.6-4.6); Lymphocytes % 35.2 %; Mean Corpuscular HGB Conc 33.1 g/dL (31.6-35.5); Mean Corpuscular Hemoglobin 30.1 pg (28.0-33.3); Mean Platelet Volume 8.7 fL (9.4-12.4); Monocytes # 0.8 K/mcL (0.0-1.3); Monocytes % 13.3 %; Neutrophils # 2.8 K/mcL (1.6-8.9); Platelet Count 229 K/mcL (140-400); Red Blood Count 4.98 M/mcL (4.19-5.50); Red Cell Distribution Width 13.7 % (11.5-14.5); Segmented Neutrophils % 47.6 %; White Blood Count 5.9 K/mcL (4.3-11.1)
[2021-07-29 05:21] LABS: BUN/Creatinine Ratio 13 (6-26); Blood Urea Nitrogen 10 mg/dL (6-20); Calcium 8.6 mg/dL (8.6-10.3); Carbon Dioxide 24 mEq/L (23-29); Chloride 110 mEq/L (98-107); Glucose 95 mg/dL (70-105); Magnesium 2.1 mg/dL (1.6-2.6); eGFR For African Americans > 60 (> 60); eGFR For Non-African Americans > 60 (> 60)
[2021-07-29 05:24] LABS: Osmolality,Calculated 293 (280-300); Phosphorous 2.7 mg/dL (2.7-4.5); Potassium 3.9 mEq/L (3.5-5.1); Sodium 142 mEq/L (136-145)
[2021-07-29 08:00] VITALS: O2SAT 97
[2021-07-29] MEDS: 0.9 % Sodium Chloride 1,000 ML IVC SCH (10:11)
[2021-07-29] MEDS: Metoprolol XL (24 HR) Succ 50 MG TAB.ER.24H PO SCH (10:11)
[2021-07-29] MEDS: Aspirin Enteric Coated 81 MG Tablet PO SCH (10:11)
[2021-07-29 10:21] VITALS: BP 143/87; PULSE 63; TEMP 97.6
== END 2021-07-29 11:10 | disposition home or self-care (01) ==
LOC: 3ANU → SUATTDRO 09:42
PROVIDERS: ADMIT Hospitalist; ATTEND Internal Medicine